=== PATIENT | male | born 1965 | race Caucasian/White ===

== ENCOUNTER 2025-01-01 11:14 | Inpatient (IN) | payer MEDICAID ==
[2025-01-01] VITALS (8 sets, daily range): BP systolic 90–96; BP diastolic 55–79; TEMP 97.2–98.2; O2SAT 94–98
[~2025-01-01] VITALS: Ht 195.6 cm; Wt 85.3 kg
[2025-01-01] MEDS: PANTOPRAZOLE 80 MG in IV NS 0.9% 100 ML IV ONE ×2 (11:49→12:00)
[2025-01-01] MEDS: PANTOPRAZOLE 80 MG in IV NS 0.9% 500 ML IV ONE (11:49)
[2025-01-01 11:54] LABS: CALCIUM, SERUM 8.6 mg/dL (8.5-10.1); CREATININE 0.7 mg/dL (0.6-1.3); EOSINOPHILS # (AUTO) 0.1 K/uL (0.0-0.7); EOSINOPHILS % (AUTO) 4.2 % (0.0-6.0); LYMPHOCYTES # (AUTO) 0.2 K/uL (0.8-4.8); LYMPHOCYTES % (AUTO) 14.2 % (20.0-44.0); MEAN CORPUSCULAR HEMOGLOBIN 23 PG (26.0-33.0); MEAN CORPUSCULAR HGB CONC 31 g/dl (31.0-36.0); MEAN CORPUSCULAR VOLUME 72 fL (80-96); MONOCYTES # (AUTO) 0.3 K/uL (0.1-1.30); MONOCYTES % (AUTO) 17.9 % (2.0-12.0); NEUTROPHILS # (AUTO) 1.1 K/uL (1.8-8.9); NEUTROPHILS % (AUTO) 62.7 % (43.0-81.0); PLATELET COUNT (AUTO) 154 K/uL (150-450); POTASSIUM 4.2 mmol/L (3.5-5.1); RED BLOOD CELL COUNT(AUTO) 2.57 MIL/uL (4.5-6.0); RED CELL DISTRIBUTION WIDTH 16.5 % (11.5-15.0)
[2025-01-01 11:55] LABS: HEMOGLOBIN 5.8 g/dL (13.5-17.5)
[2025-01-01 11:56] LABS: HEMATOCRIT 19 % (39-51); WHITE BLOOD COUNT (AUTO) 1.7 K/uL (4.3-11.0)
[2025-01-01 12:00] LABS: BILIRUBIN,DIRECT 0.1 mg/dL (0.0-0.2); BILIRUBIN,TOTAL 0.5 mg/dL (0.2-1.0); TOTAL PROTEIN, SERUM 7.8 g/dL (6.4-8.2)
[2025-01-01 12:10] LABS: INR 1.08 (0.91-1.10); PARTIAL THROMBOPLASTIN TIME 28.8 SEC (24.3-34.3); PROTHROMBIN TIME 11.4 SECS (9.2-11.1)
[2025-01-01] MEDS ORDERED: CEFTRIAXONE 1GM BAG (ER ONLY) 50 ML IV ONE (12:36)
[2025-01-01] MEDS: CEFTRIAXONE 1GM BAG (ER ONLY) 1 GM/50 ML PIGGYBACK IV ONE (12:40)
[2025-01-01 12:43] LABS: LYMPHOCYTES % (MANUAL) 20 % (16-48); MONOCYTES % (MANUAL) 8 % (0-11.0); NEUTROPHILS % (MANUAL) 72 (42-76); PLATELET ESTIMATE ADEQUATE
[2025-01-01 12:44] LABS: ANISOCYTOSIS 1+; OVALOCYTES 1+
[2025-01-01] MEDS ORDERED: OCTREOTIDE 50 MCG in IV NS 0.9% 50 ML IV ONE (13:00)
[2025-01-01] MEDS ORDERED: ACETAMINOPHEN 325 MG TABLET PO PRN (13:00)
[2025-01-01] MEDS ORDERED: MAGNESIUM HYDROXIDE 30 ML UDC PO PRN (13:00)
[2025-01-01] MEDS ORDERED: Z GUARD REMEDY 4 OZ OINT TP PRN (13:00)
[2025-01-01] MEDS ORDERED: ONDANSETRON HCL/PF 4 MG/2 ML VIAL IVP PRN (13:00)
[2025-01-01] MEDS ORDERED: MAG HYDROX/AL HYDROX/SIMETH 30 ML UDC PO PRN (13:00)
[2025-01-01] MEDS ORDERED: ZOLPIDEM TARTRATE 5 MG TABLET PO PRN (13:00)
[2025-01-01] MEDS: OCTREOTIDE 50 MCG in IV NS 0.9% 50 ML IV ONE (13:20)
[2025-01-01] MEDS ORDERED: PANTOPRAZOLE 80 MG in IV NS 0.9% 500 ML IV SCH ×2 (13:30→18:00)
[2025-01-01] MEDS ORDERED: LEVO125T8 PO (14:15)
[2025-01-01] MEDS ORDERED: AMIN30LI25 PO (14:15)
[2025-01-01] MEDS ORDERED: MIDO10TA PO (14:15)
[2025-01-01] MEDS ORDERED: NA P133E RC (14:15)
[2025-01-01] MEDS ORDERED: BISA10SU11 RC (14:15)
[2025-01-01] MEDS ORDERED: ASCO500T10 PO (14:15)
[2025-01-01] MEDS ORDERED: METO25TA20 PO (14:15)
[2025-01-01] MEDS ORDERED: LEVE1000 PO (14:15)
[2025-01-01] MEDS ORDERED: LACT1CAP88 PO (14:15)
[2025-01-01] MEDS ORDERED: ZINC220C6 PO (14:15)
[2025-01-01] MEDS ORDERED: AMIO200T5 PO (14:15)
[2025-01-01] MEDS ORDERED: FOLI0.8T3 PO (14:15)
[2025-01-01] MEDS ORDERED: GABA-532 PO (14:15)
[2025-01-01] MEDS ORDERED: FERR325T24 PO (14:15)
[2025-01-01] MEDS ORDERED: POTA20TA10 PO (14:15)
[2025-01-01] MEDS ORDERED: PANT40TA49 PO (14:15)
[2025-01-01] MEDS ORDERED: LOPE2CAP PO (14:15)
[2025-01-01] MEDS ORDERED: THIA100T88 PO (14:15)
[2025-01-01] MEDS ORDERED: ACET325T53 PO (14:15)
[2025-01-01] MEDS ORDERED: MAGN400T52 PO (14:15)
[2025-01-01] MEDS ORDERED: ACET-73 PO (14:15)
[2025-01-01] MEDS ORDERED: MULT-213 PO (14:15)
[2025-01-01] MEDS ORDERED: MAGN400O6 PO (14:15)
[2025-01-01] MEDS: PANTOPRAZOLE 80 MG in IV NS 0.9% 500 ML IV SCH (18:11)
[2025-01-01 23:53] LABS: EOSINOPHILS # (AUTO) 0.1 K/uL (0.0-0.7); LYMPHOCYTES # (AUTO) 0.2 K/uL (0.8-4.8); MONOCYTES # (AUTO) 0.3 K/uL (0.1-1.30); NEUTROPHILS # (AUTO) 0.8 K/uL (1.8-8.9)
[2025-01-01 23:58] LABS: BASOPHILS % (AUTO) 0.6 % (0.0-2.0); EOSINOPHILS % (AUTO) 4.1 % (0.0-6.0); HEMATOCRIT 22 % (39-51); LYMPHOCYTES % (AUTO) 14.6 % (20.0-44.0); MEAN CORPUSCULAR HEMOGLOBIN 24 PG (26.0-33.0); MEAN CORPUSCULAR HGB CONC 32 g/dl (31.0-36.0); MEAN CORPUSCULAR VOLUME 75 fL (80-96); MONOCYTES % (AUTO) 19.7 % (2.0-12.0); PLATELET COUNT (AUTO) 124 K/uL (150-450); RED BLOOD CELL COUNT(AUTO) 2.91 MIL/uL (4.5-6.0); RED CELL DISTRIBUTION WIDTH 18.7 % (11.5-15.0)
[2025-01-02] VITALS (9 sets, daily range): BP systolic 90–96; BP diastolic 62–69; TEMP 97.7–98.4; O2SAT 94–100
[2025-01-02 00:04] LABS: WHITE BLOOD COUNT (AUTO) 1.4 K/uL (4.3-11.0)
[2025-01-02 01:58] LABS: EOSINOPHILS % (MANUAL) 3 % (0-4); LYMPHOCYTES % (MANUAL) 15 % (16-48); MONOCYTES % (MANUAL) 19 % (0-11.0); NEUTROPHILS % (MANUAL) 63 (42-76)
[2025-01-02 02:00] LABS: ANISOCYTOSIS 1+; HYPOCHROMASIA 1+; PLATELET ESTIMATE ADEQUATE
[2025-01-02 06:43] LABS: INR 1.12 (0.91-1.10); PARTIAL THROMBOPLASTIN TIME 29.9 SEC (24.3-34.3); PROTHROMBIN TIME 11.8 SECS (9.2-11.1)
[2025-01-02 07:23] LABS: OCCULT BLOOD STOOL POSITIVE (NEGATIVE)
[2025-01-02 07:27] LABS: CALCIUM, SERUM 8.2 mg/dL (8.5-10.1); CREATININE 0.7 mg/dL (0.6-1.3); PHOSPHORUS 4.2 mg/dL (2.5-4.9); POTASSIUM 3.6 mmol/L (3.5-5.1)
[2025-01-02 07:28] LABS: EOSINOPHILS # (AUTO) 0.1 K/uL (0.0-0.7); EOSINOPHILS % (AUTO) 4.3 % (0.0-6.0); HEMATOCRIT 22 % (39-51); LYMPHOCYTES # (AUTO) 0.2 K/uL (0.8-4.8); LYMPHOCYTES % (AUTO) 13.2 % (20.0-44.0); MEAN CORPUSCULAR HEMOGLOBIN 24 PG (26.0-33.0); MEAN CORPUSCULAR HGB CONC 32 g/dl (31.0-36.0); MEAN CORPUSCULAR VOLUME 75 fL (80-96); MONOCYTES # (AUTO) 0.3 K/uL (0.1-1.30); MONOCYTES % (AUTO) 19.7 % (2.0-12.0); NEUTROPHILS # (AUTO) 0.9 K/uL (1.8-8.9); NEUTROPHILS % (AUTO) 61.8 % (43.0-81.0); PLATELET COUNT (AUTO) 132 K/uL (150-450); RED CELL DISTRIBUTION WIDTH 18.5 % (11.5-15.0)
[2025-01-02 07:31] LABS: THYROID STIMULATING HORMONE 3.23 uIU/mL (0.358-3.74)
[2025-01-02 08:05] LABS: WHITE BLOOD COUNT (AUTO) 1.4 K/uL (4.3-11.0)
[2025-01-02] MEDS ORDERED: ANESTHESIA TRAY IN PYXIS 1 EA TRAY MC ONE (09:18)
[2025-01-02] MEDS ORDERED: SIMETHICONE SUSP 40 MG/0.6 ML BOTTLE ONE (11:58)
[2025-01-02] MEDS ORDERED: LOPERAMIDE HCL (2 MG CAP) 2 MG CAPSULE PO PRN (12:00)
[2025-01-02] MEDS ORDERED: BISACODYL SUPP (10 MG) 10 MG/SUPP.RECT SUPP.RECT RC PRN (12:00)
[2025-01-02] MEDS ORDERED: HOME MED MISCELLANEOUS XX SCH (12:00)
[2025-01-02] MEDS ORDERED: NA PHOS,M-B/NA PHOS,DI-BA 1 EA ENEMA RC PRN (12:00)
[2025-01-02] MEDS: LEVETIRACETAM (500MG) 1,000 MG in IV NS 0.9% 90 ML IV SCH (13:02)
[2025-01-02] MEDS: PEG 3350/NA SULF,BICARB,CL/KCL 4,000 ML BOTTLE PO ONE (13:22)
[2025-01-02] MEDS: MIDODRINE HCL (5MG) 5 MG TABLET PO SCH (13:28)
[2025-01-02] MEDS: GABAPENTIN 100 MG CAPSULE PO SCH (13:28)
[2025-01-02 13:52] LABS: EOSINOPHILS % (MANUAL) 2 % (0-4); LYMPHOCYTES % (MANUAL) 10 % (16-48); MONOCYTES % (MANUAL) 6 % (0-11.0); NEUTROPHILS % (MANUAL) 82 (42-76); PLATELET ESTIMATE DECREASED
[2025-01-02 13:54] LABS: ANISOCYTOSIS 1+
[2025-01-02] MEDS ORDERED: ACETAMINOPHEN 325 MG TABLET ONE (14:01)
[2025-01-02] MEDS: FERROUS SULFATE (325 MG) 325 MG/TAB TABLET PO SCH (16:09)
[2025-01-02] MEDS: MAGNESIUM OXIDE 400 MG TABLET PO SCH (21:02)
[2025-01-03] VITALS: BP 95/68; TEMP 97.5; O2SAT 95
[2025-01-03 04:00] VITALS: BP 94/67; TEMP 97.5; O2SAT 93
[2025-01-03] MEDS: LEVOTHYROXINE SODIUM 125 MCG TABLET PO SCH (07:30)
[2025-01-03 08:00] VITALS: BP 90/60; TEMP 97.5; O2SAT 98
[2025-01-03] MEDS: PROSOURCE / PROSTAT (PYXIS) 30 ML UDC PO SCH (08:53)
[2025-01-03] MEDS: MULTIVITAMINS,THERAGRAN 1 UDTAB TABLET PO SCH (08:53)
[2025-01-03] MEDS: FOLIC ACID 1 MG TABLET PO SCH (08:53)
[2025-01-03] MEDS: AMIODARONE HCL 200 MG TABLET PO SCH (08:53)
[2025-01-03] MEDS: ZINC SULFATE 220 MG CAPSULE PO SCH (08:54)
[2025-01-03] MEDS: THIAMINE HCL 100 MG TABLET PO SCH (08:54)
[2025-01-03] MEDS: ASCORBIC ACID 500 MG TABLET PO SCH (08:54)
[2025-01-03] MEDS: PANTOPRAZOLE 40 MG VIAL IV SCH (09:53)
[2025-01-03 11:10] LABS: BASOPHILS % (AUTO) 0.5 % (0.0-2.0); EOSINOPHILS # (AUTO) 0.1 K/uL (0.0-0.7); EOSINOPHILS % (AUTO) 3.6 % (0.0-6.0); HEMATOCRIT 27 % (39-51); HEMOGLOBIN 8.7 g/dL (13.5-17.5); LYMPHOCYTES # (AUTO) 0.3 K/uL (0.8-4.8); LYMPHOCYTES % (AUTO) 17.2 % (20.0-44.0); MEAN CORPUSCULAR HEMOGLOBIN 25 PG (26.0-33.0); MEAN CORPUSCULAR HGB CONC 32 g/dl (31.0-36.0); MEAN CORPUSCULAR VOLUME 77 fL (80-96); MONOCYTES # (AUTO) 0.3 K/uL (0.1-1.30); MONOCYTES % (AUTO) 19.5 % (2.0-12.0); NEUTROPHILS % (AUTO) 59.2 % (43.0-81.0); PLATELET COUNT (AUTO) 141 K/uL (150-450); RED CELL DISTRIBUTION WIDTH 18.1 % (11.5-15.0)
[2025-01-03 11:11] LABS: CALCIUM, SERUM 7.8 mg/dL (8.5-10.1); CREATININE 0.8 mg/dL (0.6-1.3); POTASSIUM 3.4 mmol/L (3.5-5.1)
[2025-01-03 11:14] LABS: WHITE BLOOD COUNT (AUTO) 1.7 K/uL (4.3-11.0)
[2025-01-03 12:00] VITALS: BP 90/60; TEMP 97.5; O2SAT 98
[2025-01-03 12:11] LABS: EOSINOPHILS % (MANUAL) 4 % (0-4); LYMPHOCYTES % (MANUAL) 20 % (16-48); MONOCYTES % (MANUAL) 14 % (0-11.0); NEUTROPHILS % (MANUAL) 62 (42-76); PLATELET ESTIMATE DECREASED
[2025-01-03 12:12] LABS: ANISOCYTOSIS 1+
[2025-01-03 16:00] VITALS: BP 86/60; TEMP 97.3; O2SAT 95
[2025-01-03] MEDS: POTASSIUM CHLORIDE 20 MEQ TAB.PRT.SR PO SCH (17:31)
[2025-01-03 20:00] VITALS: BP 91/68; TEMP 97.5; O2SAT 99
[2025-01-04 04:00] VITALS: BP 91/61; TEMP 97.4; O2SAT 98
[2025-01-04 07:15] LABS: CALCIUM, SERUM 8.2 mg/dL (8.5-10.1); CREATININE 0.9 mg/dL (0.6-1.3); POTASSIUM 3.6 mmol/L (3.5-5.1)
[2025-01-04 07:38] LABS: MAGNESIUM 2.2 mg/dL (1.8-2.4); PHOSPHORUS 3.7 mg/dL (2.5-4.9)
[2025-01-04 08:00] VITALS: BP 96/64; TEMP 97.7; O2SAT 97
[2025-01-04 08:32] LABS: BASOPHILS % (AUTO) 0.5 % (0.0-2.0); EOSINOPHILS # (AUTO) 0.1 K/uL (0.0-0.7); EOSINOPHILS % (AUTO) 4.1 % (0.0-6.0); HEMATOCRIT 26 % (39-51); HEMOGLOBIN 8.5 g/dL (13.5-17.5); LYMPHOCYTES # (AUTO) 0.3 K/uL (0.8-4.8); LYMPHOCYTES % (AUTO) 15.5 % (20.0-44.0); MEAN CORPUSCULAR HEMOGLOBIN 25 PG (26.0-33.0); MEAN CORPUSCULAR HGB CONC 33 g/dl (31.0-36.0); MEAN CORPUSCULAR VOLUME 77 fL (80-96); MONOCYTES # (AUTO) 0.5 K/uL (0.1-1.30); MONOCYTES % (AUTO) 25.7 % (2.0-12.0); NEUTROPHILS % (AUTO) 54.2 % (43.0-81.0); PLATELET COUNT (AUTO) 140 K/uL (150-450); RED CELL DISTRIBUTION WIDTH 18.5 % (11.5-15.0)
[2025-01-04 08:47] LABS: WHITE BLOOD COUNT (AUTO) 1.8 K/uL (4.3-11.0)
[2025-01-04] MEDS: LEVETIRACETAM (250 MG) 250 MG TABLET PO SCH (08:57)
[2025-01-04 08:58] VITALS: BP 96/64
[2025-01-04 10:18] LABS: LYMPHOCYTES % (MANUAL) 10 % (16-48); MONOCYTES % (MANUAL) 12 % (0-11.0); NEUTROPHILS % (MANUAL) 78 (42-76); PLATELET ESTIMATE DECREASED
[2025-01-04 10:19] LABS: ANISOCYTOSIS 1+
[2025-01-04] MEDS ORDERED: PANT40TA2 PO (12:41)
== END 2025-01-04 14:11 | DRG 241 ==
LOC: ER 11:25 → TELE-TD 12:45 → TELE1 01-02 09:35 → MEDSG1 01-03 09:42
PROVIDERS: ADMIT Nurse Practitioner Acute Care; ATTEND Nurse Practitioner Acute Care
PROC: 30233N1 Transfusion of Nonautologous Red Blood Cells into Peripheral Vein, Percutaneous Approach (ICD-10-PCS; principal; 2025-01-01)
PROC: 0DB68ZX Excision of Stomach, Via Natural or Artificial Opening Endoscopic, Diagnostic (ICD-10-PCS; 2025-01-02)
DX: K29.71 Gastritis, unspecified, with bleeding (principal); D68.59 Other primary thrombophilia; K76.6 Portal hypertension; D62 Acute posthemorrhagic anemia; S31.000A Unspecified open wound of lower back and pelvis without penetration into retroperitoneum, initial encounter; G40.909 Epilepsy, unspecified, not intractable, without status epilepticus; I48.0 Paroxysmal atrial fibrillation; I10 Essential (primary) hypertension; K74.60 Unspecified cirrhosis of liver; K21.9 Gastro-esophageal reflux disease without esophagitis; Z53.20 Procedure and treatment not carried out because of patient's decision for unspecified reasons; L72.3 Sebaceous cyst; D72.819 Decreased white blood cell count, unspecified; E03.9 Hypothyroidism, unspecified; Z74.09 Other reduced mobility; S81.802A Unspecified open wound, left lower leg, initial encounter; S81.801A Unspecified open wound, right lower leg, initial encounter; S31.829A Unspecified open wound of left buttock, initial encounter; S31.819A Unspecified open wound of right buttock, initial encounter; X58.XXXA Exposure to other specified factors, initial encounter; Y93.9 Activity, unspecified; Y92.129 Unspecified place in nursing home as the place of occurrence of the external cause; Y99.9 Unspecified external cause status
CPT/HCPCS: 36415; 43235; 71045-TC; 80048-TC; 80076-TC; 82272-TC; 83735-TC; 84100-TC; 84443-TC; 85025-TC; 85610-TC; 85730-TC; 86850-TC; 87081-TC; 88305-TC; 88312-TC; 88313-TC; 88341; 88342; 93970-TC; A4223; G0378; J0696; J1953; J2354; J2470; J2704; J3490; J7030; J7040; J7050; P9016